=== PATIENT | male | born 1975 | race Caucasian/White ===

== ENCOUNTER 2021-10-04 20:38 | Emergency (ER) | payer OTHER, SELFPAY ==
[2021-10-04 20:41] VITALS: BP 157/101; PULSE 80; RESP 22; TEMP 37.1; O2SAT 97; BMI 30.2
--- NOTE | 2021-10-04 20:48 | EKG12_ITS ---
Test Reason : CP Blood Pressure : / mmHG Vent. Rate : 074 BPM Atrial Rate : 074 BPM P-R Int : 148 ms QRS Dur : 076 ms QT Int : 358 ms P-R-T Axes : 033 047 049 degrees QTc Int : 397 ms Normal sinus rhythm Normal ECG Confirmed by KETAN ANGEL, ELIZABETH ([id number]), publishing editor JOANNE RAMIREZ ([id number]) on 10/11/2021 1:16:33 PM Referred By: Confirmed By:ELIZABETH ACEVES MD
--- NOTE | 2021-10-04 21:06 | RAD_ITS ---
INDICATION: chest pain EXAMINATION/TECHNIQUE: X-RAY - XR Chest 1 View COMPARISON: None. FINDINGS: LINES/DEVICES: None. LUNGS: Symmetric normal lung volumes. No airspace opacity or abnormal interstitial pattern. No nodule or mass. No pleural effusion or pneumothorax. MEDIASTINUM AND CARDIOVASCULAR STRUCTURES: Normal size and contour of the cardiomediastinal silhouette. No evidence of pulmonary vascular congestion. BONES AND SOFT TISSUES: No abnormality within limits of the exam. RAD/Chest 1 View (Portable) IMPRESSION: 1. No radiographic evidence of acute cardiopulmonary disease. Electronically Signed: Hua Craig DO at 22:14 EDT ,
[2021-10-04 21:15] LABS: Absolute Lymphocyte Count 1.66 X10^3/uL (0.83-4.51); Absolute Neutrophil Count 4.7 X10^3/uL (2.0-7.7); Basophil# 0.03 X10^3/uL; Basophil% 0.4 % (0-1); Eosinophil# 0.12 X10^3/uL; Eosinophils% 1.7 % (0-5); Hemoglobin 15.4 g/dL (13.0-16.5); Lymphocyte # 1.66 X10^3/ul (0.83-4.51); Lymphocyte % 23.9 % (19-41); Mean Corp Hgb Conc 33.5 g/dL (32-36); Mean Corpuscular Hgb 29.2 pg (27.0-32.0); Mean Corpuscular Volume 87.3 fL (80-94); Monocyte# 0.38 X10^3/uL; Monocyte% 5.5 % (0-10); NRBC Flagged by Analyzer 0 % (0-5); Neutrophil # 4.72 X10^3/uL (2.7-7.7); Neutrophil % 68.1 % (47-70); Platelet Count 363 K/mm3 (150-450); RBC Distribution Width CV 12.9 % (11.6-14.6); RBC Distribution Width SD 41.6 fl (35.1-43.9); Red Blood Count 5.27 M/mm3 (4.6-6.2); White Blood Count 6.9 K/mm3 (4.4-11.0)
[2021-10-04 21:40] LABS: Anion Gap 5 (5-15); BUN 11 mg/dL (7-18); BUN/Creat Ratio 10.3 RATIO (10-20); Calcium,Total 9.2 mg/dL (8.5-10.1); Chloride 105 mmol/L (98-107); Creatinine, Serum 1.07 mg/dL (0.70-1.30); EST Glomerular Filtration Rate 79 mL/min (>60); Est Glom Filt Rate - Afr Amer 95 mL/min (>60); Estimated Creatinine Clearance 85.35 ml/min; Glucose 112 mg/dL (74-106); Potassium 3.8 mmol/L (3.5-5.1); Sodium Level 139 mmol/L (136-145); Troponin-I HS (w/2H Reflex) < 3 pg/mL (3.0-78.0)
[2021-10-04 21:54] VITALS: BP 133/87; PULSE 70; RESP 18; O2SAT 96
--- NOTE | 2021-10-04 21:55 | EDS_ITS ---
HPI History of Present Illness Chief Complaint: Chest Pain Detail of Chief Complaint: Intermittent left chest pain x3 days Informant: patient Onset/Context/Timing Onset: Days Activity at onset: sudden and rest Timing: Intermittent Quality: Positive for Aching and Dull Location: Left Chest Current Severity: Mild Maximum Severity: Severe Worsened By: Nothing Relieved By: Nothing Associated Symptoms: Negative for Nausea, Vomiting, Diaphoresis, Dyspnea, Cough, Fever, Lightheadedness, Acid Reflux and Palpitations Narrative Narrative: Patient is a 46-year-old male who presents with left-sided chest pain that was initially described as a dull mild discomfort. Today it was much more severe. No associated symptoms. No radiation. No precipitating, alleviating or exacerbating factors. No history of peptic ulcer disease, GERD or reflux. He denies history of hiatal hernia. He denies intolerance to greasy or fried foods. He denies black or maroon-colored stool. There is no history of trauma. Patient denies any recent respiratory symptoms. Prior Similar Symptoms: No Recent Illness/Hospitalization: No CVD Risk Factors: Negative for Diabetes, Hypercholesterolemia, Family History 1' </=55 and Smoking PE Risk Factors: Negative for Recent Travel/Surgery, Recent Immobilization, Prior DVT or PE, Cancer and OCP + Smoking + >/=35 TAD Risk Factors: Negative for Marfan's Syndrome, Hypertension and Family History [facility] Medical History Hypertension Home Medications losartan 10/04/21 [History Last Taken Unknown] methylphenidate HCl [Concerta] 36 mg PO DAILY 10/04/21 [History Last Taken Unknown] Allergy/AdvReac Type Severity Reaction Status Date / Time No Known Allergies Allergy Verified 10/04/21 20:39 Surgical History no surgical history Social History (Updated 10/04/21 @ 22:[address] Simon Sweeney MD) household members: spouse Smoking Status: Never smoker substance use type: does not use ROS ROS ED Constitutional Constitutional ED: Denies chills, fever(s), subjective, sweats or weight loss Eyes Eyes: Denies blurry vision, change in vision or diplopia ENT ENT ED: Denies ear pain, rhinorrhea or sore throat Cardiovascular Cardiovascular: Reports as per HPI; Denies orthopnea or paroxysmal nocturnal dyspnea Respiratory/Chest Respiratory/Chest: Denies cough, dyspnea, dyspnea on exertion, orthopnea or paroxysmal nocturnal dyspnea Gastrointestinal Gastrointestinal: Denies abdominal pain, melena, nausea or vomiting Genitourinary Genitourinary ED: Denies dysuria, hematuria or urinary frequency Musculoskeletal Musculoskeletal: Denies arthralgias, back pain, myalgias or neck pain Integumentary Denies abscess, Abrasions or rash Neurologic Neurologic: Denies headache(s) or weakness Hematologic/Lymphatic Hematologic/Lymphatic: Denies easy bleeding or easy bruising EXAM Physical Exam Const Vital Signs: 10/04/21 20:41 10/04/21 21:02 10/04/21 21:54 Temperature 98.7 F Temperature Source Temporal Pulse Rate 80 70 Respiratory Rate 22 H 18 Respiratory Effort Normal Blood Pressure 157/101 H 133/87 H Blood Pressure Mean 119 102 Pulse Ox 97 96 Oxygen Delivery Method Room Air Room Air Positive well nourished, well developed and obese General Appearance ED: well developed and NAD; Negative for pallor Nutritional Appearance: obese HEENT Reports TM's clear; Denies moist mucous membranes or dry mucous membranes normocephalic and atraumatic Tympanic Membrane ED: Yes TM's clear Mouth ED: No dry mucous membranes Mouth: No dry mucous membranes Eyes PERRL and EOMs intact bilaterally General Eye ED: Negative for pale conjunctiva or scleral icterus Neck no lymphadenopathy, supple and no JVD Chest Wall palpation of chest normal Resp normal respiratory effort and clear to auscultation bilaterally Effort and Inspection: Negative for respiratory distress Cardio regular rate, regular rhythm, S1 normal heart sound, S2 normal heart sound and no murmurs GI normal to inspection, nondistended, normoactive bowel sounds, soft to palpation, non-tender, non-distended and no masses Back/Spine no CVA tenderness Extremity normal to inspection Extremity Narrative: There is no asymmetry, swelling, discoloration, leg vein distention, palpable cords or tenderness along the distribution of the deep venous system. General Extremety ED: Negative for edema or tenderness General Extremity: Negative for edema Neuro oriented x3, CN's II-XII intact bilaterally and no sensory deficits noted Sensorium / Orientation: awake, alert, oriented to person and oriented to place Motor Exam: strength 5/5 throughout Psych mental status grossly normal Skin no rashes or lesions noted and no wounds General Skin Exam: Negative for jaundice or pallor Heart Score History: Slightly/Non-Suspicious ECG: Normal Age: >45 - <65 years Risk Factors: 1 or 2 Risk Factors Troponin: </= Normal Limit Score: 2 MDM MDM MDM Narrative Medical decision making narrative: Differential diagnosis cardiac versus noncardiac. Doubt GI or biliary. Will obtain CBC, electrolyte panel and troponin. Lab Data Attestation: I reviewed the patient's lab results. Lab results narrative: With a troponin less than 3 and pain for several days negative predictive value is 100% that this is not cardiac. Labs: Laboratory Results - last 24 hr 10/04/21 10/04/21 20:41 20:41 WBC 6.9 RBC 5.27 Hgb 15.4 Hct 46.0 MCV 87.3 MCH 29.2 MCHC 33.5 RDW Std Deviation 41.6 RDW Coeff of Sahil 12.9 Plt Count 363 MPV 10.0 Immature Gran % (Auto) 0.400 Neut % (Auto) 68.1 Lymph % (Auto) 23.9 Rooks % (Auto) 5.5 Eos % (Auto) 1.7 Baso % (Auto) 0.4 Absolute Neuts (auto) 4.7 Absolute Lymphs (auto) 1.66 Nucleated RBC % 0 Sodium 139 Potassium 3.8 Chloride 105 Carbon Dioxide 29.0 Anion Gap 5 BUN 11 Creatinine 1.07 Estim Creat Clear Calc 85.35 Est GFR (MDRD) Af Amer 95 Est GFR (MDRD) Non-Af 79 BUN/Creatinine Ratio 10.3 Glucose 112 H Calcium 9.2 Troponin I High Sens < 3 L Radiography Chest X-Ray - ED: 1 View (Single view portable chest x-ray interpreted independently by me at 2154. Cardiac silhouette size normal. Mediastinum normal. Osseous trucks unremarkable. There may be slight atelectasis periphery right side.) EKG Initial EKG: Interpretation: Sinus Rhythm (Normal sinus rhythm ventricular rate of 74. WI interval is 148 ms. QRS duration 76 ms. QT duration 3 and 58 ms. [place] is normal. The EKG is normal.) Discharge Plan Triage Chief Complaint: Chest Pain ED Provider: Simon Sweeney Dx/Rx/DC Orders Clinical Impression: Intermittent left-sided chest pain, History of essential hypertension Instructions: ED Chest Pain, Noncardiac Prescriptions: No Action methylphenidate HCl [Concerta] 36 mg Tablet Extended Release 24hr 36 mg PO DAILY RF: 0 losartan RF: 0 Primary Care Provider: Myrtle Payton NP Referrals: Myrtle Payton NP, [facility] [Primary Care Provider] - 3-5 Days if not improving Disposition Disposition: Home, Self Care
[2021-10-04 22:15] VITALS: RESP 18; O2SAT 94
[2021-10-04 23:04] LABS: Reflex Troponin-HS? (from REC) Y
== END 2021-10-04 22:20 | disposition home or self-care (01) ==
PROVIDERS: Emergency Provider Emergency Medicine; PCP Nurse Practitioner Primary Care; Visit Provider Emergency Medicine
DX: R07.89 Other chest pain (principal); I10 Essential (primary) hypertension; Z79.899 Other long term (current) drug therapy
CPT/HCPCS: 71045; 80048; 84484; 85025; 93005; 99284; A4216